=== PATIENT | male | born 1950 | race Caucasian/White ===

== ENCOUNTER 2017-05-28 15:06 | Emergency (ER) | payer OTHER ==
[2017-05-28 15:35] VITALS: BP 103/67; PULSE 66; RESP 20; O2SAT 98
--- NOTE | 2017-05-28 16:22 | C.PDOC ---
History Of Present Illness 66 year old male with a Hx of chronic lower back pain presents to the ER with a complaint of weakness and fatigue. Patient was seen at [facility] [place] yesterday and diagnosed with the flu, he had blood work which was negative and discharged home with medications. Denies bladder/bowel incontinence, motor weakness or recent injury. Patient not taking any medication for his chronic back pain, is taking Tamiflu. Time Seen by Provider: 05/28/17 15:26 Chief Complaint (Nursing): Flu-like Symptoms History Per: Patient History/Exam Limitations: no limitations Onset/Duration Of Symptoms: Days Current Symptoms Are (Timing): Still Present Location Of Pain: None Sick Contacts (Context): None Associated Symptoms: Other (Weakness, fatigue) Ear Symptoms: Bilateral: None Recent travel outside of the [place]: No Past Medical History Reviewed: Historical Data, Nursing Documentation, Vital Signs Vital Signs: Last Vital Signs Temp 102.5 F H 05/28/17 15:26 Pulse 66 05/28/17 15:16 Resp 20 05/28/17 15:16 BP 103/67 05/28/17 15:16 Pulse Ox 98 05/28/17 16:23 - [email or web address] Procedures INSERT INDWELLING CATH (04/15/13) Family History: States: Unknown Family Hx - Social History Hx Tobacco Use: No Hx Alcohol Use: No Hx Substance Use: No - Immunization History Hx Tetanus Toxoid Vaccination: No Hx Influenza Vaccination: No Hx Pneumococcal Vaccination: No Review Of Systems Except As Marked, All Systems Reviewed And Found Negative. Constitutional: Positive for: Weakness, Other (Fatigue) Genitourinary: Negative for: Incontinence Physical Exam - Physical Exam Additional Physical Exam Comments: Constitutional: No acute distress. Head: Normocephalic. Atraumatic. Eyes: PERRL. ENT: Moist mucous membranes. Neck: Supple. Cardiovascular: Regular rate. Radial pulse 2+ bilaterally. Chest: No tenderness. Respiratory: Clear to auscultation bilaterally. GI: Soft. Nontender. Nondistended. Back: No CVA tenderness. Musculoskeletal: No tenderness or swelling of extremities. Skin: No rash. Neurologic: Alert, no focal deficit. Moves all extremities. Sensation to light touch intact in bilateral legs and saddle area. ED Course And Treatment O2 Sat by Pulse Oximetry: 98 (room air) Pulse Ox Interpretation: Normal Medical Decision Making Medical Decision Making: Advised ibuprofen and acetaminophen around the clock for pain control in addition to tamiflu. Offered blood work to check for dehydration or other abnormalities but patient/environmental project manager declined given just taken yesterday and completely normal as per them. Disposition - Disposition Referrals: Spencer Rivera MD [Medical Doctor] - Disposition: HOME/ ROUTINE Disposition Time: 16:49 Condition: STABLE Prescriptions: Acetaminophen [Tylenol 325mg tab] 2 tab PO Q4H #30 tab Famotidine [Pepcid] 1 tab PO BID #28 tab Ibuprofen [Motrin] 1 tab PO Q6 #30 tab Instructions: Low Back Pain (DC) Forms: Gen Discharge Inst Thai, [facility] (Thai) Print Language: PAKISTANI - Clinical Impression Clinical Impression: Influenza, Back pain - Scribe Statement The provider has reviewed the documentation as recorded by the Scribe Andrew Hall All medical record entries made by the Scribe were at my direction and personally dictated by me. I have reviewed the chart and agree that the record accurately reflects my personal performance of the history, physical exam, medical decision making, and the department course for this patient. I have also personally directed, reviewed, and agree with the discharge instructions and disposition.
[2017-05-28 17:19] VITALS: TEMP 99.3
== END 2017-05-28 17:31 | disposition home or self-care (01) ==
LOC: C.ER 15:06
DX: J11.1 Influenza due to unidentified influenza virus with other respiratory manifestations (principal); M54.5 Low back pain
CPT/HCPCS: 96372; 99283; J1885